=== PATIENT | male | born 1945 | race Caucasian/White ===

== ENCOUNTER → 2018-11-29 | Outpatient (CLI) | payer OTHER | LOC: GIMAGING 11:26 → EDSTATUS 15:46 | PROVIDERS: ATTEND Internal Medicine | DX: R60.0 Localized edema (principal); M19.031 Primary osteoarthritis, right wrist; R93.7 Abnormal findings on diagnostic imaging of other parts of musculoskeletal system | CPT/HCPCS: 73110-PO ==